=== PATIENT | female | born 1975 | race Caucasian/White ===

== ENCOUNTER → 2019-07-12 | Outpatient (CLI) | payer BC ==
--- NOTE | 2019-07-13 21:11 | US ---
EXAMINATION TYPE: US pelvic complete DATE OF EXAM: 07/12/2019 COMPARISON: NONE CLINICAL HISTORY: R10.2 pelvic pain N92.0 Excessive and frequent men. TECHNIQUE: Transabdominal (TA). Date of LMP: 07/05/19 EXAM MEASUREMENTS: Uterus: 9.2 x 4.2 x 5.4 cm Endometrial Stripe: 0.8 cm Right Ovary: 3.2 x 2.7 x 2.7 cm Left Ovary: 2.9 x 2.1 x 2.6 cm 1. Uterus: Anteverted wnl 2. Endometrium: wnl 3. Right Ovary: wnl 4. Left Ovary: wnl 5. Bilateral Adnexa: wnl 6. Posterior cul-de-sac: wnl Urinary bladder is sonolucent. Posterior wall is normal. IMPRESSION: 1. Normal pelvic ultrasound.
== END | disposition home or self-care (01) ==
LOC: RADUSWWP 14:33
PROVIDERS: ATTEND Obstetrics & Gynecology
DX: R10.2 Pelvic and perineal pain (principal); N92.0 Excessive and frequent menstruation with regular cycle
CPT/HCPCS: 76856